=== PATIENT | male | born 1965 | race Caucasian/White ===

== ENCOUNTER 2020-08-09 15:57 | Emergency (ER) | payer OTHER ==
[~2020-08-09] VITALS: Ht 170.2 cm; Wt 68.0 kg
[~2020-08-09 15:57] MED LIST: NOHOMEMEDICATIONS
[2020-08-09] MEDS ORDERED: IBUPROFEN 800800 M1 PO (17:50)
[2020-08-09] MEDS ORDERED: KEFLEX500 M1 PO (17:50)
[2020-08-09] MEDS ORDERED: NORCO 5-325 TA1 EAC2 PO (17:50)
[2020-08-09 17:58] VITALS: BP 132/62
[2020-08-11 04:06] LABS: HIV-1/HIV-2 ANTIBODY Non Reactive (Non Reactive)
== END 2020-08-09 17:59 | disposition home or self-care (01) ==
LOC: M.ERS 15:57
PROVIDERS: Nurse Practitioner Family
DX: S62.634B Displaced fracture of distal phalanx of right ring finger, initial encounter for open fracture (principal); F17.210 Nicotine dependence, cigarettes, uncomplicated; W31.2XXA Contact with powered woodworking and forming machines, initial encounter; Y93.89 Activity, other specified; Y92.89 Other specified places as the place of occurrence of the external cause; Y99.0 Civilian activity done for income or pay